=== PATIENT | female | born 2005 | race Caucasian/White ===

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

== ENCOUNTER 2025-03-22 19:49 | Inpatient (IN) | payer OTHER, MEDICAID ==
[~2025-03-22] VITALS: Ht 162.6 cm; Wt 86.3 kg
[2025-03-22 20:27] LABS: PLATELET COUNT, AUTOMATED 332 10^3/uL (150-450)
[2025-03-22 20:47] LABS: AMPHETAMINES LEVEL URINE NEGATIVE (NEGATIVE)
[2025-03-22 20:49] LABS: BARBITURATES URINE NEGATIVE (NEGATIVE)
[2025-03-22 20:50] LABS: BENZODIAZEPINES URINE NEGATIVE (NEGATIVE); CANNABINOIDS URINE NEGATIVE (NEGATIVE); COCAINE METABOLITE URINE NEGATIVE (NEGATIVE); METHADONE URINE NEGATIVE (NEGATIVE); OPIATES URINE NEGATIVE (NEGATIVE); PHENCYCLIDINE URINE NEGATIVE (NEGATIVE); SALICYLATE LEVEL < 3.0 MG/DL (<30)
[2025-03-22 20:51] LABS: ETHYL ALCOHOL (ETHANOL) < 0.003 % (0.000-0.010)
[2025-03-22 20:53] LABS: ALT/SGPT 30 U/L (7.0-40); AST/SGOT 16 U/L (<34); CALCIUM LEVEL 9.1 MG/DL (8.5-10.1); CARBON DIOXIDE LEVEL 27 MMOL/L (20-31); CHLORIDE LEVEL 106 MMOL/L (98-107); CREATININE FOR GFR 0.61 MG/DL (0.55-1.30); GLOMERULAR FILTRATION RATE > 90.0 (>60); POTASSIUM SERUM 3.8 MMOL/L (3.5-5.1); SODIUM LEVEL 145 MMOL/L (136-145)
[2025-03-22] MEDS ORDERED: IBUPROFEN 400 MG TAB PO PRN (23:05)
[2025-03-22] MEDS ORDERED: MAALOX 30 ML SUSP *UDC PO PRN (23:05)
[2025-03-22] MEDS ORDERED: ACETAMINOPHEN 325 MG TAB PO PRN (23:05)
[2025-03-22] MEDS ORDERED: MOM 30 ML SUSPENSION UDC PO PRN (23:05)
[2025-03-23 03:04] VITALS: BP 113/74; TEMP 97.5; O2SAT 98
[2025-03-23] MEDS: NICOTINE 14 MG/24 HR TRANSDERMAL TD SCH (12:02)
[2025-03-23] MEDS ORDERED: VALA500T5 PO (12:13)
[2025-03-23] MEDS ORDERED: BUSP10TA PO (12:13)
[2025-03-23] MEDS ORDERED: HOME MED LIST COMPLETE! XX SCH (12:15)
[2025-03-23 15:00] VITALS: BP 141/78; TEMP 97.3; O2SAT 98
[2025-03-23] MEDS: traZODone 50 MG TAB PO PRN (20:18)
[2025-03-24 06:50] VITALS: BP 130/88; TEMP 97.9; O2SAT 99
[2025-03-24] MEDS ORDERED: ABIL1TAB13 PO (08:46)
[2025-03-24 15:00] VITALS: BP 109/56; TEMP 98.1; O2SAT 65
[2025-03-24] MEDS ORDERED: OMEP-173 PO (16:24)
== END 2025-03-24 17:55 | disposition home or self-care (01) | DRG 883 ==
LOC: M ED 19:49 → M ED INP 23:05 → M PSY 03-23 02:10
PROVIDERS: ADMIT Psychiatry & Neurology Neurology; ATTEND General Practice
DX: F60.3 Borderline personality disorder (principal); R45.851 Suicidal ideations; F31.81 Bipolar II disorder; Z62.810 Personal history of physical and sexual abuse in childhood; Z81.8 Family history of other mental and behavioral disorders; Z91.52 Personal history of nonsuicidal self-harm; Z79.899 Other long term (current) drug therapy; Z91.148 Patient's other noncompliance with medication regimen for other reason; E66.9 Obesity, unspecified; K21.9 Gastro-esophageal reflux disease without esophagitis; T43.596A Underdosing of other antipsychotics and neuroleptics, initial encounter; Z68.32 Body mass index [BMI] 32.0-32.9, adult